=== PATIENT | male | born 1970 | race Caucasian/White ===

== ENCOUNTER 2016-09-03 23:24 | Emergency (ER) | payer OTHER ==
[~2016-09-03] VITALS: Ht 177.8 cm; Wt 94.5 kg
[~2016-09-03 23:24] MED LIST: ALBUAER19 INH
[2016-09-03 23:29] VITALS: TEMP 37; Ht 177.8 cm; Wt 94.5 kg
[2016-09-03] MEDS ORDERED: KETOROLAC TROMETHAMINE 60 MG/2 ML VIAL IM STA (23:39)
--- NOTE | 2016-09-04 00:16 | EMERGENCY ROOM VISIT NOTE ---
ED Visit Note First contact with patient: 23:29 CHIEF COMPLAINT: Shoulder pain HISTORY OF PRESENT ILLNESS: This 46 yo patient presents to the emergency department complaining of pain in the right shoulder, no direct injury. There is limitation of motion of the arm because of the pain. The pain is moderate, constant and increases with motion of the hand and arm. The patient states the pain is throbbing and 8/10. The patient has taken nothing relief of the pain. No previous significant previous shoulder disease or injury. No numbness or tingling. no neck no back pain. No chest pain or shortness of breath. No abdominal pain or nausea/vomiting. No cough. 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 No direct injury. REVIEW OF SYSTEMS: A 6 system review of systems was performed with positives and pertinent negatives in the HPI. ALLERGIES: none MEDICATIONS: none PMH: none SOCIAL HISTORY: no drug use PHYSICAL EXAM: Vital Signs: Reviewed nurse's notes, vital signs stable. GENERAL : Pleasant male, in no acute distress, but appears to be in pain, well-developed , well-nourished. MUSCULOSKELETAL: There is no deformity in the contour of the shoulder and there are no remi deformities noted. There is no sulcus sign. There is tenderness over the supraspinatus. The patient's range of motion is limited secondary to pain. Supraspinatus strength 4/5. There is clavicle tenderness. No tenderness of the humerus, elbow, wrist, or hand. [employer] strength 5/5. Radial pulse 2+. NECK: no tenderness to palpation over the cervical spine. HEART: Regular rate and rhythm without murmurs gallops or rubs. LUNGS: Clear to auscultation bilaterally without wheezes, rales or rhonchi. No accessory muscle use. No retractions. NEURO: The patient is alert and oriented to person, place, and time. Normal sensation to light and sharp touch. Capillary refill less than 2 seconds. EMERGENCY DEPARTMENT COURSE: I examined the patient. An X-ray of the right shoulder was reviewed by myself and my Attending and shows neg fracture. Patient was placed in a sling and neurovascular status was checked after placement and is intact. He was advised to frequently remove his arm out and do range of motion exercises as not to develop a frozen shoulder. He was advised follow-up with orthopedics or shoulder problem or here in the ER sooner for severe pain, numbness, tingling, worsening signs or symptoms or as needed. Patient was discharged home in stable condition. DIAGNOSIS: Shoulder pain, right DISCHARGE INSTRUCTIONS & TREATMENT: Oxycodone (OxyIR) 5mg: Take 1-2 pills every four hours for breakthrough pain. Avoid alcohol, operating machinery or dangerous equipment, working on ladders or roofs, DRIVING, or situations where being under the influence may be dangerous. It is recommended to use an [id number] stool softener such as Colace, 100mg twice daily while taking this medication to avoid constipation. Ibuprofen(Motrin, Advil) may be used for fever or pain. Use 600mg every six hours as needed. Take with food. Avoid using more than 2400mg in a 24 hour period. Do not use 2400mg per day for more than three consecutive days without physician direction. Prolonged inappropriate use can lead to stomach upset or ulcers. This medication can be taken if you need to drive, work, or perform activities which may be dangerous when taking narcotic pain medication. (AND/OR) Acetaminophen(Tylenol) may be used for fever or pain. Use 1000mg every six hours as needed. Avoid using more than 3000mg in a 24 hour period. This medication can be taken if you need to drive, work, or perform activities which may be dangerous when taking narcotic pain medication. Use the sling as instructed. Remove your arm from the sling 4-6 times a day and move all the joints around to keep them loose. Rest and elevate your injury. Continue current medications. Return to the ER immediately for any numbness, tingling, severe pain, extreme swelling in the extremity or as needed. Call Orthopedics tomorrow to arrange follow up for your injury. Problem List Medical Problems: (1) Cat bite Status: Resolved Current/Historical Medications No Active Prescriptions or Reported Meds Allergies Coded Allergies: No Known Allergies (Unverified , 09/03/16) Vital Signs Date Time Temp Pulse Resp B/P (MAP) Pulse Ox O2 Delivery O2 Flow Rate FiO2 09/03/16 23:29 37.0 56 18 135/81 99 Room Air Medications Administered Medications (Trade) Dose Ordered Sig/Rosy Route Start Time Stop Time Status Last Admin Dose Admin Ketorolac Tromethamine (Toradol Inj) 60 mg NOW STAT IM 09/03/16 23:39 09/03/16 23:40 DC 09/03/16 23:43 60 MG Departure Information Prescriptions No Active Prescriptions or Reported Meds Referrals No Doctor, Assigned (PCP) Patient Instructions [facility]
[2016-09-04 00:28] VITALS: BP 129/71; PULSE 55; O2SAT 99
[2016-09-04] MEDS ORDERED: OXYCODONE IR HOME PACK PO ONE (00:30)
--- NOTE | 2016-09-04 07:06 | DIAGNOSTIC IMAGING REPORT ---
RIGHT SHOULDER MIN 2 VIEWS ROUTINE CLINICAL HISTORY: Right shoulder pain. COMPARISON: None. DISCUSSION: No acute fractures or dislocations are visualized. There are 2 corticated ossicles at the level of the superior scapular glenoid. IMPRESSION: 1. No acute fractures 2. Corticated ossicles adjacent to the scapular glenoid Electronically signed by: Iam Mahoney M.D. 09/04/2016 7:05 AM Dictated Date/Time: 09/04/2016 7:04 AM
== END 2016-09-04 00:29 | disposition home or self-care (01) ==
LOC: C.EDB 23:25 → C.EDA 09-04 00:29
DX: M25.511 Pain in right shoulder (principal)